=== PATIENT | male | born 1985 | race Asian ===

== ENCOUNTER 2024-07-06 12:25 | Emergency (ER) | payer OTHER ==
[~2024-07-06] VITALS: Ht 177.8 cm; Wt 104.5 kg
[2024-07-06 12:45] VITALS: BP 150/100; PULSE 106; RESP 18; TEMP 98.9; O2SAT 97
[2024-07-06] MEDS ORDERED: ATOR40TA28 PO (13:02)
[2024-07-06] MEDS ORDERED: HYDR25TA2 PO (13:02)
[2024-07-06] MEDS ORDERED: METF-1211 PO (13:02)
[2024-07-06 13:19] LABS: BASOPHILS % (AUTO) 0.8 % (0.0-2.0); EOSINOPHILS % (AUTO) 2.4 % (1.0-6.0); HEMOGLOBIN 15.7 g/dL (13.5-17.5); LYMPHOCYTES # (AUTO) 2.3 K/uL (1.0-4.8); LYMPHOCYTES % (AUTO) 32.1 % (22.0-44.0); MEAN CORPUSCULAR HEMOGLOBIN 29.6 pg (26.0-34.0); MEAN CORPUSCULAR HGB CONC 34.1 G/dL (31.0-37.0); MEAN CORPUSCULAR VOLUME 87 fL (80-100); MONOCYTES # (AUTO) 0.5 K/uL (0.1-1.0); MONOCYTES % (AUTO) 7.2 % (2.0-9.0); NEUTROPHILS # (AUTO) 4.1 K/uL (1.8-7.7); NEUTROPHILS % (AUTO) 57.5 % (40.0-70.0); PLATELET COUNT (AUTO) 300 K/uL (150-450); RED BLOOD CELL COUNT(AUTO) 5.31 MIL/uL (4.50-5.90); WHITE BLOOD COUNT (AUTO) 7.2 K/uL (4.5-11.0)
[2024-07-06 13:28] LABS: ANION GAP 11 mmol/L (8-16); CARBON DIOXIDE 27 mmol/L (22-29); CHLORIDE 96 mmol/L (98-107); CREATININE 0.96 mg/dL (0.60-1.30); GLOMERULAR FILTR. RATE CALC > 60 mL/min (>60); GLUCOSE,RANDOM 321 mg/dL (70-110); POTASSIUM 3.5 mmol/L (3.5-5.1); SODIUM SERUM 134 mmol/L (136-145); UREA NITROGEN, BLOOD 10 mg/dL (7-18)
[2024-07-06 13:36] LABS: ALCOHOL, BLOOD (SERUM) < 3 mg/dL (0-10); TROPONIN I-HIGH SENSITIVITY 8 ng/L (<76)
== END 2024-07-06 14:12 | disposition left against medical advice (07) ==
LOC: EMS 12:25 → MERGE 12:25 → EMS 14:12
DX: F41.9 Anxiety disorder, unspecified (principal); R07.89 Other chest pain; Z53.21 Procedure and treatment not carried out due to patient leaving prior to being seen by health care provider
CPT/HCPCS: 93005; 80048; 84484; 85025; 36415; G0480